=== PATIENT | female | born 1970 | race African-American/Black ===

== ENCOUNTER 2021-06-10 01:37 | Emergency (ER) | payer MEDICAID, OTHER ==
[~2021-06-10] VITALS: Ht 170.2 cm; Wt 132.0 kg
[2021-06-10] MEDS ORDERED: SIMETHICONE 80MG TABLET CHEW PO PRN (02:45)
[2021-06-10 02:46] LABS: BASOPHILS % 0.9 % (0.0-2.0); HEMATOCRIT. 35.8 % (36.0-48.0); HEMOGLOBIN. 12.2 g/dL (12.0-16.0); LYMPHOCYTES % 39.3 % (20.0-50.0); MEAN CORPUSCULAR HEMOGLOBIN 30.3 pg (28.0-32.0); MEAN CORPUSCULAR VOLUME 88.7 fL (81.0-99.0); MEAN PLATELET VOLUME 8.9 fl (7.4-10.4); MONOCYTES % 5.8 % (2.0-8.0); PLATELET 230 x1000/uL (130-400); RED BLOOD CELL COUNT 4.04 mill/uL (4.2-5.4); RED CELL DISTRIBUTION WIDTH 13.3 % (11.6-14.6)
[2021-06-10 02:51] LABS: CHLORIDE 111 mEq/L (98-107)
[2021-06-10 04:30] VITALS: BP 139/82
== END 2021-06-10 04:53 | disposition home or self-care (01) ==
LOC: ER 01:37
DX: R06.02 Shortness of breath (principal); K59.00 Constipation, unspecified; E11.9 Type 2 diabetes mellitus without complications; Z86.19 Personal history of other infectious and parasitic diseases
CPT/HCPCS: 36415; 71045; 80053; 83880; 84484; 85025; 93005; 99285